=== PATIENT | male | born 2000 | race Caucasian/White ===

== ENCOUNTER 2023-10-15 15:29 | Emergency (ER) | payer BC, OTHER ==
[2023-10-15] MEDS: HYDROmorphone 0.5 MG/0.5 ML Syringe IVPUSH ONE ×2 (15:57→16:05)
[2023-10-15] MEDS: Sodium Chloride 0.9% 10 ML Syringe FLUSH PRN (15:59)
[2023-10-15 16:09] LABS: BASOPHILS ABSOLUTE AUTO 0.1 K/mm3 (0.0-0.2); BASOPHILS PERCENT AUTO 1.1 % (0.0-1.0); EOSINOPHILS ABSOLUTE AUTO 0.1 K/mm3 (0.0-0.4); EOSINOPHILS PERCENT AUTO 0.9 % (0.0-6.0); HEMATOCRIT 46.4 % (42.0-52.0); HEMOGLOBIN 15.6 gm/dl (14.0-18.0); IMMATURE GRAN ABSOLUTE AUTO 0.03 K/mm3 (0.00-0.05); IMMATURE GRAN PERCENT AUTO 0.3 % (0.0-0.4); LYMPHOCYTES ABSOLUTE AUTO 3.3 K/mm3 (1.0-4.8); LYMPHOCYTES PERCENT AUTO 36.1 % (24.0-44.0); MEAN CORPUSCULAR HEMOGLOBIN 29.4 pg (28.0-32.0); MEAN CORPUSCULAR HGB CONC 33.6 g/dl (32.0-36.0); MEAN CORPUSCULAR VOLUME 87.5 fl (83.0-99.0); MONOCYTES ABSOLUTE AUTO 0.6 K/mm3 (0.0-0.8); MONOCYTES PERCENT AUTO 6.9 % (0.0-8.0); NEUTROPHILS ABSOLUTE AUTO 4.9 K/mm3 (1.8-7.7); NEUTROPHILS PERCENT AUTO 54.7 % (41.0-71.0); PLATELET COUNT,PLT 342 K/mm3 (150-400); WHITE BLOOD CELL COUNT,WBC 9.02 K/mm3 (3.9-11.3)
[2023-10-15 16:15] LABS: A/G RATIO 1.3 (1-2); ALBUMIN 4.5 g/dl (3.4-5.0); ANION GAP 22.4 (5-15); BILIRUBIN TOTAL 0.8 mg/dL (0.2-1.0); BUN/CREATININE RATIO 12.9 (14-18); CALCIUM 9.6 mg/dL (8.5-10.1); CREATININE 1.4 mg/dL (0.7-1.3); POTASSIUM,K 3.4 mEq/L (3.5-5.1)
[2023-10-15] MEDS: ceFAZolin 2 GM in Sodium Chloride 0.9% 50 ML IV ONE (16:30)
[2023-10-15 16:35] LABS: EST CRCL DRUG DOSING (CG) 91.61 mL/min
[2023-10-15] MEDS: HYDROmorphone 0.5 MG/0.5 ML Syringe ONE (16:36)
== END 2023-10-15 17:00 ==
LOC: JD.ED 15:29
DX: S82.251C Displaced comminuted fracture of shaft of right tibia, initial encounter for open fracture type IIIA, IIIB, or IIIC (principal); S82.831A Other fracture of upper and lower end of right fibula, initial encounter for closed fracture; V29.008A Other motorcycle driver injured in collision with unspecified motor vehicles in nontraffic accident, initial encounter; Y93.55 Activity, bike riding
CPT/HCPCS: 36415; 70450; 70450-26; 71045; 71045-26; 72125; 72125-26; 73590-26-RT; 73590-RT; 80053; 80307; 83690; 85025; 96365; 96375; 99285-25; J0690; J1170; J3490